=== PATIENT | female | born 2000 ===

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

== ENCOUNTER 2019-04-28 01:13 | Emergency (ER) | payer OTHER ==
[2019-04-28 01:56] LABS: ABS Eosinophils 0.2 10^3/ul (0-0.6); ABS Lymphocytes 1.6 10^3/ul (1.0-4.8); ABS Monocytes 0.5 10^3/ul (0-0.8); ABS Neutrophils 2.7 10^3/ul (1.5-7.7); Eosinophil % 4.3 %; Hematocrit 40 % (35-47); Hemoglobin 13.6 g/dL (12.0-16.0); Lymphocyte % 31.4 %; Mean Corpuscular HGB Conc 34 g/dL (31-36); Mean Corpuscular Hemoglobin 30 pg (27-31); Mean Corpuscular Volume 87 fL (80-97); Mean Platelet Volume 8.6 fL (7.4-10.4); Nucleated Red Blood Cells % 0.1; Platelet Count 236 10^3/uL (150-450); Red Blood Count 4.55 10^6 /uL (3.70-4.87); Red Cell Distribution Width 13 % (10-15)
--- NOTE | 2019-04-28 02:06 | ED ---
Substance Abuse/Use - HPI Summary HPI Summary: Pt is a 18 y/o F presenting to the ED with a chief complaint of an overdose. She states she took about of a bottle of NyQuil to try and stop her cough so she could fall asleep and let he roommate sleep, but it instead caused nausea, confusion, and dizziness. She denies myalgia, SOB, SI/HI. NKDA. - History Of Current Complaint Chief Complaint: EDOverdose Stated Complaint: TOO MUCH COUGH MEDICINE PER FRIEND Time Seen by Provider: 04/28/19 01:28 Hx Obtained From: Patient Hx Last Menstrual Period: 10/08/18 Onset/Duration of Drug/ETOH Abuse: Hours Ingestion History: Type/Name Of Drug - NyQuil, Amount Ingested - 3/4 bottle, Approximate Time Of Ingestion Timing Of Abuse: Binge Use Severity Initially: Moderate Severity Currently: Moderate Aggravating Factor(s): Nothing Alleviating Factor(s): Nothing Associated Signs And Symptoms: Confused, Nausea, Other: - dizziness - Allergies/Home Medications Allergies/Adverse Reactions: Allergies Allergy/AdvReac Type Severity Reaction Status Date / Time No Known Allergies Allergy Verified 11/07/18 20:50 PMH/Surg Hx/FS Hx/Imm Hx Previously Healthy: Yes Endocrine/Hematology History: Denies: Hx Diabetes Respiratory History: Reports: Hx Asthma - exercise induced Psychiatric History: Reports: Hx Attention Deficit Hyperactivity Disorder - Surgical History Surgery Procedure, Year, and Place: adenoids out as a child Infectious Disease History: No Infectious Disease History: Denies: Traveled Outside the [place] in Last 30 Days - Family History Known Family History: Negative: Hypertension - Social History Alcohol Use: Weekly Hx Substance Use: No Substance Use Type: Reports: None Hx Tobacco Use: No Smoking Status (MU): Never Smoked Tobacco Review of Systems Negative: Shortness Of Breath Positive: Nausea Negative: Myalgia Neurological: Other - dizziness, confusion Negative: Other - SI/HI All Other Systems Reviewed And Are Negative: Yes Physical Exam - Summary Physical Exam Summary: Constitutional: Well-developed, Well-nourished, Alert. (-) Distressed Skin: Warm, Dry HENT: Normocephalic; Atraumatic Eyes: Conjunctiva normal, pupils dilated Neck: Musculoskeletal ROM normal neck. (-) JVD, (-) Stridor, (-) Tracheal deviation Cardio: Rhythm regular, rate normal, Heart sounds normal; Intact distal pulses; Radial pulses are 2+ and symmetric. (-) Murmur Pulmonary/Chest wall: Effort normal. (-) Respiratory distress, (-) Wheezes, (-) Rales Abd: Soft, (-) tenderness, (-) Distension, (-) Guarding, (-) Rebound Musculoskeletal: (-) Edema Lymph: (-) Cervical adenopathy Neuro: Alert, Oriented x3 Psych: Mood and affect Normal Triage Information Reviewed: Yes Vital Signs On Initial Exam: Initial Vitals Temp Pulse Resp BP Pulse Ox 99.9 F 103 18 151/112 99 04/28/19 01:14 04/28/19 01:14 04/28/19 01:14 04/28/19 01:14 04/28/19 01:14 Vital Signs Reviewed: Yes Procedures - Sedation Patient Received Moderate/Deep Sedation with Procedure: No Diagnostics - Vital Signs Vital Signs Temp Pulse Resp BP Pulse Ox 04/28/19 01:42 115 144/86 98 04/28/19 01:35 104 152/103 98 04/28/19 01:34 100 98 04/28/19 01:14 99.9 F 103 18 151/112 99 - Laboratory Lab Results: Lab Results 04/28/19 Range/Units 01:49 WBC 5.0 (3.5-10.8) 10^3/uL RBC 4.55 (3.70-4.87) 10^6 /uL Hgb 13.6 (12.0-16.0) g/dL Hct 40 (35-47) % MCV 87 (80-97) fL MCH 30 (27-31) pg MCHC 34 (31-36) g/dL RDW 13 (10-15) % Plt Count 236 (150-450) 10^3/uL MPV 8.6 (7.4-10.4) fL Neut % (Auto) 54.1 % Lymph % (Auto) 31.4 % [place] % (Auto) 9.7 % Eos % (Auto) 4.3 % Baso % (Auto) 0.5 % Absolute Neuts (auto) 2.7 (1.5-7.7) 10^3/ul Absolute Lymphs (auto) 1.6 (1.0-4.8) 10^3/ul Absolute Monos (auto) 0.5 (0-0.8) 10^3/ul Absolute Eos (auto) 0.2 (0-0.6) 10^3/ul Absolute Basos (auto) 0.0 (0-0.2) 10^3/ul Absolute Nucleated RBC 0.0 10^3/ul Nucleated RBC % 0.1 Result Diagrams: 04/28/19 01:49 04/28/19 01:49 Lab Statement: Any lab studies that have been ordered have been reviewed, and results considered in the medical decision making process. - EKG 0224 Cardiac Rate: NL - 85bpm EKG Rhythm: Sinus Rhythm ST Segment: Normal Ectopy: None Summary of EKG Findings: EKG at 0224 shows NSR at 85bpm with no STEMI and no acute abnormalities. ED physician has reviewed and interpreted this rpeort. Course/Dx - Course Course Of Treatment: Patient is here with an accidental overdose of NyQuil. Patient took NyQuil the day before and had little effect. Patient thought taking more would make the medicine work better. Patient drink three quarters of a bottle of NyQuil. Patient had a toxicology workup which showed a acetaminophen level less than the threshold for NAC. Patient had posion control consultation and they were not concerned about the quantity of her ingestion. - Diagnoses Provider Diagnoses: Overdose, Cough Discharge ED - Sign-Out/Discharge Documenting (check all that apply): Patient Departure - Discharge Plan Condition: Stable Disposition: HOME Patient Education Materials: Safe Use of Acetaminophen (ED) Referrals: [facility] @ [Outside] Additional Instructions: Follow up with [facility] within the next 1-3 days. Return to the emergency department with any new or worsening symptoms, including uncontrollable vomiting or fever. - Billing Disposition and Condition Condition: STABLE Disposition: Home - Attestation Statements Document Initiated by Scribe: Yes Documenting Scribe: Barbie Poe Provider For Whom Danikaibmaria esther is Documenting (Include Credential): Silvio Mirza MD. Scribe Attestation: Barbie Lynn, yuriyed for Silvio Mirza MD. on 04/28/19 at 0355. Scribe Documentation Reviewed: Yes Provider Attestation: The documentation as recorded by the scribBarbie mayo accurately reflects the service I personally performed and the decisions made by me, Silvio Mirza MD. Status of Scribe Document: Viewed
[2019-04-28 02:13] LABS: ALT 8 U/L (7-52); AST 14 U/L (13-39); Albumin 4.3 g/dL (3.2-5.2); Albumin/Globulin Ratio 1.5 (1-3); Alkaline Phosphatase 45 U/L (34-104); Anion Gap 7 mmol/L (2-11); BUN/Creatinine Ratio 10.7 (8-20); Blood Urea Nitrogen 12 mg/dL (6-24); CO2 Carbon Dioxide 25 mmol/L (22-32); Calcium 9.5 mg/dL (8.6-10.3); Chloride 107 mmol/L (101-111); EGFR African American 75.8 (>60); EGFR Non-African American 62.7 (>60); Globulin 2.9 g/dL (2-4); Glucose 84 mg/dL (70-100); Potassium 3.7 mmol/L (3.5-5.0); Sodium 139 mmol/L (135-145); Total Protein 7.2 g/dL (6.4-8.9)
[2019-04-28 02:47] LABS: Acetaminophen 49 mcg/mL; Alcohol < 10 mg/dL (<10); Salicylate < 2.50 mg/dL (<30)
[2019-04-28 03:39] VITALS: BP 139/88
== END 2019-04-28 03:35 | disposition home or self-care (01) ==
LOC: ED 01:13
DX: T50.991A Poisoning by other drugs, medicaments and biological substances, accidental (unintentional), initial encounter (principal); R05 Cough; Y92.009 Unspecified place in unspecified non-institutional (private) residence as the place of occurrence of the external cause; F90.9 Attention-deficit hyperactivity disorder, unspecified type; Z79.899 Other long term (current) drug therapy
CPT/HCPCS: 36415; 80053; 80320; 80329; 82803; 85025; 93005; 99282; G0480